=== PATIENT | female | born 1965 | race Caucasian/White ===

== ENCOUNTER 2016-11-02 21:57 | Emergency (ER) | payer BC, OTHER ==
[~2016-11-02] VITALS: Ht 162.6 cm; Wt 71.2 kg
[~2016-11-02 21:57] MED LIST: AMBIEN 5 MG TABL5 M1 PO; METHOTREXATE 22.5 MG PO; MS CONTIN15 MG PO; TRAMADOL 50 MG50 MG PO; ZANAFLEX4 MG PO
[2016-11-02 23:25] VITALS: BP 112/64
== END 2016-11-02 23:25 | disposition home or self-care (01) ==
LOC: ER 21:57
DX: S60.211A Contusion of right wrist, initial encounter (principal); F32.9 Major depressive disorder, single episode, unspecified; F41.9 Anxiety disorder, unspecified; K58.8 Other irritable bowel syndrome; F17.210 Nicotine dependence, cigarettes, uncomplicated; Z90.710 Acquired absence of both cervix and uterus; Z90.49 Acquired absence of other specified parts of digestive tract; Z87.442 Personal history of urinary calculi; Z91.041 Radiographic dye allergy status; Z88.6 Allergy status to analgesic agent; Z88.8 Allergy status to other drugs, medicaments and biological substances; W01.0XXA Fall on same level from slipping, tripping and stumbling without subsequent striking against object, initial encounter; Y93.89 Activity, other specified; Y92.512 Supermarket, store or market as the place of occurrence of the external cause; Y99.8 Other external cause status

== ENCOUNTER → 2016-11-10 | Outpatient (CLI) | payer BC, OTHER | LOC: RAD 10:28 | DX: M25.541 Pain in joints of right hand (principal); W19.XXXA Unspecified fall, initial encounter; Y93.89 Activity, other specified; Y92.89 Other specified places as the place of occurrence of the external cause; Y99.8 Other external cause status ==

== ENCOUNTER → 2020-09-02 | Outpatient (CLI) | payer BC, OTHER | LOC: LAB 13:30 | PROVIDERS: ATTEND Family Medicine | DX: R05 Cough (principal); Z20.828 Contact with and (suspected) exposure to other viral communicable diseases ==